=== PATIENT | female | born 1935 | race Two or more races ===

== ENCOUNTER 2020-08-17 21:18 | Emergency (ER) | payer OTHER ==
[~2020-08-17] VITALS: Ht 157.5 cm; Wt 43.1 kg
[2020-08-17] MEDS ORDERED: PLAVIX75 MG (21:47)
[2020-08-17] MEDS ORDERED: LANOXIN125 MCG (21:48)
[2020-08-17] MEDS ORDERED: ATORVASTATIN CA10 MG (21:48)
[2020-08-17] MEDS ORDERED: LOSARTAN POTASS50 MG (21:48)
[2020-08-17] MEDS ORDERED: ARICEPT10 MG (21:48)
[2020-08-17] MEDS ORDERED: LEVO-T25 MCG (21:48)
== END 2020-08-18 00:55 | disposition home or self-care (01) ==
LOC: ER 21:18
DX: S00.03XA Contusion of scalp, initial encounter (principal); S06.0X9A Concussion with loss of consciousness of unspecified duration, initial encounter; W01.198A Fall on same level from slipping, tripping and stumbling with subsequent striking against other object, initial encounter; Y93.01 Activity, walking, marching and hiking; Y92.018 Other place in single-family (private) house as the place of occurrence of the external cause; Y99.8 Other external cause status

== ENCOUNTER 2020-09-12 17:27 | Emergency (ER) | payer OTHER ==
[~2020-09-12] VITALS: Ht 144.8 cm; Wt 42.6 kg
[~2020-09-12 17:27] MED LIST: ARICEPT10 MG; ATORVASTATIN CA10 MG; LANOXIN125 MCG; LEVO-T25 MCG; LOSARTAN POTASS50 MG; PLAVIX75 MG
== END 2020-09-13 18:03 | disposition home or self-care (01) ==
LOC: ER 17:27
DX: K52.89 Other specified noninfective gastroenteritis and colitis (principal); E87.1 Hypo-osmolality and hyponatremia; E86.0 Dehydration; E87.8 Other disorders of electrolyte and fluid balance, not elsewhere classified; I48.0 Paroxysmal atrial fibrillation; R55 Syncope and collapse; R41.0 Disorientation, unspecified; F02.80 Dementia in other diseases classified elsewhere, unspecified severity, without behavioral disturbance, psychotic disturbance, mood disturbance, and anxiety; Z03.818 Encounter for observation for suspected exposure to other biological agents ruled out

== ENCOUNTER 2021-12-22 13:11 | Emergency (ER) | payer OTHER ==
[~2021-12-22] VITALS: Ht 170.2 cm; Wt 49.9 kg
[2021-12-22] MEDS ORDERED: ARICEPT10 MG (13:24)
[2021-12-22] MEDS ORDERED: ELIQUIS2.5 MG (13:24)
[2021-12-22] MEDS ORDERED: TOPROL XL25 M1 (13:24)
== END 2021-12-22 16:01 | disposition home or self-care (01) ==
LOC: ER 13:11
DX: E86.0 Dehydration (principal); I10 Essential (primary) hypertension; G30.9 Alzheimer's disease, unspecified; F02.80 Dementia in other diseases classified elsewhere, unspecified severity, without behavioral disturbance, psychotic disturbance, mood disturbance, and anxiety; E03.9 Hypothyroidism, unspecified; I49.9 Cardiac arrhythmia, unspecified; Z20.822 Contact with and (suspected) exposure to COVID-19